=== PATIENT | female | born 1995 | race Caucasian/White ===

== ENCOUNTER 2023-08-06 11:47 | Day surgery (SDC) | payer OTHER, SELFPAY ==
[2023-08-04 14:54] VITALS: BMI 23.1
--- NOTE | 2023-08-06 | PATH_ITS ---
[facility] Accession Number: [id number] No. of containers..01 Tissue . 01 Material submitted: . endometrium - ENDOMETRIAL CURETTINGS . 01 Diagnosis: Endometrium, Curettings: Polypoid fragments of benign secretory phase endometrium. Negative for significant cytologic atypia, hyperplasia and malignancy. MRV 08/12/2023 1640 Local . 01 Electronically signed: . Agata Rucker MD, Pathologist NPI- [id number] . 01 Gross description: . ENDOMETRIAL CURETTINGS: Received in formalin are minute fragments of mucoid and hemorrhagic material measuring 1.3 x 1.3 x 0.4 cm in aggregate. Submitted in toto in 1 cassette. /ROGER 08/07/2023 1907 Local . 01 Pathologist provided ICD-10: N92.0, D25.9 . 01 CPT . 655632 Specimen Comment: A courtesy copy of this report has been sent to [phone] Performed at: 01 [facility] [address] [place] [address], [place], [place] [id number] MD Luis Fernando Posey MD Phone: [phone]
[2023-08-06 12:07] VITALS: BP 97/63; PULSE 60; RESP 16; TEMP 36.3; O2SAT 100; BMI 22.5
[2023-08-06] MEDS: LACTATED RINGERS 1,000 ML 150 ML IV (12:32)
--- NOTE | 2023-08-06 12:34 | SUR.PREOP ---
Patient refused scopalamine patch stating she has never had nausea or vomiting after surgery
--- NOTE | 2023-08-06 13:45 | P.HPOB_ITS ---
History of Present Illness History of Present Illness Reason for admission: vaginal bleeding (Heavy) Narrative: Patti Ron is a 28 year old female G0 who presents for a D&C hysteroscopy with resection of endometrial mass. This is being done due to menorrhagia and endometrial mass seen on ultrasound. [facility] Medical History (Updated 06/10/23 @ 19:40 by Caitlyn Charltno) Anxiety (~2018) Migraines (~2013) Headache (~2013) ADHD (~2003) Ovarian cancer Breast cancer Surgical History (Updated 06/10/23 @ 19:40 by Caitlyn Charlton) Anesthesia History of hip surgery Family History (Updated 06/10/23 @ 19:43 by Caitlyn Charlton) Father Cancer Mother Breast cancer Grandmother Breast cancer Grandfather Cancer Social History household members: spouse Smoking Status: Never smoker alcohol intake: current Meds Home Medications and Allergies Home Medications Medication Instructions Recorded Confirmed Type dextroamphetamine sulfate 10 mg 10 mg PO DAILY 08/06/23 08/06/23 History tablet Allergies Allergy/AdvReac Type Severity Reaction Status Date / Time No Known Drug Allergies Allergy Unverified 05/29/23 15:16 Exam Vital Signs (past 8 hours): - 08/06/23 12:07 Temperature 97.3 F L Pulse Rate 60 Respiratory Rate 16 Blood Pressure 97/63 Pulse Oximetry 100 Oxygen Delivery Method Room Air Oxygen Delivery Method Room Air Narrative Exam Narrative: HEENT: No thyromegaly, no anterior cervical or supraclavicular lymphadenopathy. Lungs:Clear to auscultation bilaterally, no wheezes. Cardiovascular: Regular rate and rhythm, no murmurs, rubs, or gallops. Abdomen: No scars. No hepatosplenomegaly. No masses palpable. External genitalia: Normal Vagina: Normal Cervix: Normal Bimanual exam: 7 Week size anterior uterus. Mobile. Extremities: No edema Assessment & Plan Assessment & Plan narrative: Assessment: 28-year-old 0 with menorrhagia and an endometrial mass seen on ultrasound Plan: D&C hysteroscopy with resection of mass The risks, benefits, and alternatives to the procedure were explained to the patient. The risks including bleeding, infection, and uterine perforation. She understands these risks and agrees to proceed. A full par Q was held and consent form was signed.
--- NOTE | 2023-08-06 13:46 | PM.PREOP ---
Pre-operative Note Interval Note History & Physical reviewed/Exam performed by Physician: Yes Changes to H&P: No H&P completed within 30 days and has changed as indicated here:: 08/06/23
--- NOTE | 2023-08-06 14:41 | SUR.OPER ---
Lithotomy on padded OR bed, head on pillow, arms secured on padded arm boards at <90 degrees abduction. Legs secured in padded yellow fins stirrups.
[2023-08-06] MEDS: ACETAMINOPHEN IV 1,000 MG/100 ML VIAL 400 MG IV (14:44)
[2023-08-06 15:00] VITALS: BP 113/67; PULSE 50; RESP 13; TEMP 36.6; O2SAT 100
--- NOTE | 2023-08-06 15:02 | P.OP_ITS ---
Operative Date/Time/Diagnoses Date of procedure: 08/06/23 Time of procedure: 15:02 Pre-op diagnosis: Menorrhagia Endometrial mass Post-op diagnosis: same Procedure & Clinicians Procedure: Procedures Operation Date: 08/06/23 13:00 Actual Procedure Side Surgeon p Hysteroscopy D&C Not Applicable Leda Guillaume MD Indications: Patient is a 28-year-old 0 with menorrhagia and an endometrial mass seen on ultrasound Surgeon: Leda Guillaume Anesthesia Type: General (LMA) Operative Notes Findings: 7 week size anteverted uterus Both fallopian tube ostia observed Very thickened lining from the mid uterus to the fundus on the anterior wall Large amount of endometrial curetting No polyp or fibroid observed Closure Type: not applicable Specimen(s): endometrial curettings Estimated blood loss (mL): 15 Blood products transfused: none Procedure in detail: After informed consent was obtained, the patient was taken to the operating room where she was placed in the dorsal supine position. After adequate LMA general anesthesia was achieved, she was placed in the dorsal lithotomy position, and prepped and draped in the usual sterile fashion. A time-out was performed. A bivalve speculum was placed into the vagina and the anterior lip of the cervix was grasped with a single-tooth tenaculum. The cervical os was sequentially dilated to the # 9 Hegar dilator. The hysteroscope pass easily into the endometrial cavity. Both fallopian tube ostia were observed. There were no polyps or fibroids observed. There was a very thickened glandular endometrium extending from the mid uterus to the fundus on the anterior wall. The hys teroscope was removed from the uterus. Sharp curettage was performed yielding a large amount of endometrial curettings. The instruments were removed from the uterus. The single-tooth tenaculum was removed from the anterior lip of the cervix. The bivalve speculum was removed from the vagina. Sponge, lap, and instrument counts were correct x2. The patient tolerated the procedure well, and was taken to PACU in stable condition. Complications: none Post-operative Condition: stable Disposition: PACU Plan for aftercare: Home after recovery
[2023-08-06 15:07] VITALS: BP 107/58; PULSE 95; RESP 11; TEMP 36.6; O2SAT 100
[2023-08-06 15:11] VITALS: BP 111/64; PULSE 74; RESP 12; TEMP 36.6; O2SAT 100
[2023-08-06 15:16] VITALS: BP 113/63; PULSE 69; RESP 18; TEMP 36.4; O2SAT 99
[2023-08-06 15:23] VITALS: BP 100/66; PULSE 60; RESP 16; TEMP 36.8; O2SAT 98
== END 2023-08-06 15:28 | disposition home or self-care (01) ==
PROVIDERS: PCP Nurse Practitioner; Referring Provider Obstetrics & Gynecology; Visit Provider Obstetrics & Gynecology
PROC: 0UDB8ZZ Extraction of Endometrium, Via Natural or Artificial Opening Endoscopic (ICD-10-PCS; CPT 58558; principal; 2023-08-06 13:00)
DX: N92.0 Excessive and frequent menstruation with regular cycle (principal); R93.89 Abnormal findings on diagnostic imaging of other specified body structures; N84.0 Polyp of corpus uteri
CPT/HCPCS: 58558; J0131; J1100; J1885; J2405; J2704; J3010

== ENCOUNTER 2024-02-08 10:34 | Emergency (ER) | payer OTHER, SELFPAY ==
[2024-02-08 10:38] VITALS: BP 122/68; PULSE 55; RESP 20; TEMP 36.6; O2SAT 100; BMI 22.8
--- NOTE | 2024-02-08 11:23 | ED.GENADULT ---
HPI - General Adult General Chief complaint: Urogenital-Female Stated complaint: severe abd pain t-6, diff urinating Time Seen by Provider: 02/08/24 11:23 Source: patient Mode of arrival: Ambulatory History of Present Illness HPI narrative: 28-year-old G0 with history of dysmenorrhea with hysteroscopy and resection of a uterine fibroid as well as D and C done on August 30 as fairly significant history comes in complaining of abdominal pain has been present for 5 days and getting worse. She states it is in her pelvis and localizing into the right lower quadrant. It started in her low back with no radicular pain last week. 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 She did attributed it to some heavy yd work she had done but symptoms continued. She has some mild dysuria but no overt flank pain that she identifies. She has not describing significant vaginal discharge and no vaginal bleeding. No new sexual partners. She has not having fevers, constipation, nausea, vomiting, diarrhea, chest pain, palpitations Related Data Home Medications Medication Instructions Recorded Confirmed dextroamphetamine sulfate 10 mg 10 mg PO DAILY 08/06/23 08/06/23 tablet Previous Rx's Medication Instructions Recorded oxycodone 5 mg tablet 5 mg PO Q6H PRN pain #7 tabs 08/06/23 oxycodone 5 mg tablet 5 mg PO Q6H PRN pain #7 tabs 08/07/23 Allergies Allergy/AdvReac Type Severity Reaction Status Date / Time No Known Drug Allergies Allergy Unverified 05/29/23 15:16 Review of Systems Review of Systems Narrative: Pertinent positive and negative findings as per HPI Patient History Medical History Anxiety (~2019) Migraines (~2014) Headache (~2014) ADHD (~2004) Surgical History Anesthesia History of hip surgery Family History Father Cancer Mother Breast cancer Grandmother Breast cancer Grandfather Cancer Social History household members: spouse Smoking Status: Never smoker alcohol intake: current Smoking Status: Never smoker alcohol intake frequency: a few times a week Substance Use Type: does not use Exam Initial Vital Signs Initial Vital Signs: Vital Signs Temperature 98 F 02/08/24 10:38 Pulse Rate 55 L 02/08/24 10:38 Respiratory Rate 20 02/08/24 10:38 Blood Pressure 122/68 02/08/24 10:38 Pulse Oximetry 100 02/08/24 10:38 Oxygen Delivery Method Room Air 02/08/24 10:38 General: Healthy appearing, in no acute distress. Able to give a complete and coherent history. Well-nourished well-developed HEENT: Moist mucous membranes, normal sclera with reactive pupils, Respiratory: Lungs are clear to auscultation, no wheezing no rales no rhonchi. Full and symmetrical air movement Cardiac: Regular rate and rhythm no murmurs no bruits Abdomen: Soft, mild tenderness in the lower abdomen with increased tenderness in the right lower quadrant. No flank pain. Spine: She has no tenderness along the sacrum or lumbar spine. No skin discoloration, no paraspinous muscle spasm Skin: Warm and dry, no rashes Neurologic: Grossly neurologically intact with no obvious asymmetries or abnormalities Extremities: No trauma, well perfused Psych: Cooperative, appropriate insight and affect Course Orders Ordered: ED Orders 02/08/24 10:56 Test Urine Stat Urinalysis and Microscopic Stat 02/08/24 11:38 CT abdomen pelvis w con Stat 02/08/24 11:50 Complete Blood Count AUTO DIFF Stat Comprehensive Metabolic Panel Stat Lipase Stat Vital Signs Vital signs: Vital Signs - 8 hr 02/08/24 10:38 02/08/24 11:49 02/08/24 11:50 Temperature 98 F Pulse Rate 55 L 54 L 51 L Respiratory Rate 20 Blood Pressure 122/68 Pulse Oximetry 100 100 100 Oxygen Delivery Method Room Air Room Air 02/08/24 11:50 Temperature Pulse Rate Respiratory Rate Blood Pressure 110/58 L Pulse Oximetry Oxygen Delivery Method Medical Decision Making Lab Data 02/08/24 11:50 02/08/24 11:50 Labs: Lab Results 02/08/24 02/08/24 Range/Units 10:56 11:50 WBC 10.4 (4.5-11.0) X10^3/uL RBC 4.08 (4.0-5.2) X10^6/uL Hgb 12.8 (12.0-16.0) g/dL Hct 38.3 (36-46) % MCV 93.8 (80-100) fL MCH 31.3 (26-34) PG MCHC 33.3 (30-36) % RDW 13.4 (11.6-14.8) % Plt Count 349 (150-400) X10^3/uL Neut % (Auto) 80.1 H (50-75) % Lymph % (Auto) 11.7 L (25-40) % [place] % (Auto) 6.7 (3-14) % Eos % (Auto) 0.7 L (2-4) % Baso % (Auto) 0.8 (0-2) % Neut # (Auto) 8300 H (7950-2995) /uL Lymph # (Auto) 1200 (1268-6379) /uL [place] # (Auto) 700 (0-900) /uL Eos # (Auto) 100 (0-450) /uL Baso # (Auto) 100 (0-100) /uL Sodium 138 (137-145) mmol/L Potassium 4.5 (3.4-5.1) mmol/L Chloride 105 (98-107) mmol/L Carbon Dioxide 32 (22-32) mmol/L BUN 12 (7-17) mg/dL Creatinine 0.70 (0.52-1.04) mg/dL Estimated GFR > 60 (>60) mL/min BUN/Creatinine Ratio 17.1 (6-22) Glucose 82 (70-100) mg/dL Calcium 9.1 (8.4-10.2) mg/dL Total Bilirubin 0.4 (0.2-1.3) mg/dL AST 26 (14-36) IU/L ALT 20 (<35) IU/L Alkaline Phosphatase 50 (38-126) U/L Total Protein 7.5 (6.3-8.2) g/dL Albumin 4.3 (3.5-5.0) g/dL Globulin 3.2 (1.7-4.1) g/dL Albumin/Globulin Ratio 1.3 (1.0-2.8) Lipase 99 (23-300) U/L Urine Color Yellow Urine Appearance Clear Urine pH 6.0 (4.5-8.0) Ur Specific [place] <=1.005 (1.000-1.035) Urine Protein Negative (Negative) Urine Glucose (UA) Negative (Negative) g/dL Urine Ketones Negative (NEGATIVE) Urine Occult Blood Negative (Negative) Urine Nitrate Negative (Negative) Urine Bilirubin Negative (NEGATIVE) Urine Urobilinogen 0.2 (0.2) E.U./dL Ur Leukocyte Esterase Negative (NEGATIVE) Urine RBC None seen (0-5/HPF) Urine WBC None seen (0-5/HPF) Ur Squamous Epith Cells None seen (0-5/HPF) Urine Bacteria None seen (None) Ur Culture Indicated? Cult not indicated Vol Urine Centrifuged 10ml (spun) Urine Test Negative (Negative) Urine Dip Bedside Urine Glucose Negative Bedside Urine Bilirubin - Negative Bedside Urine Ketone - Negative Urine Specific [place] 1.000 Bedside Urine Occult Blood - Negative Bedside Urine pH 6.0 Bedside Urine Protein - Negative Bedside Urine Urobilinogen - Negative Bedside Urine Nitrite - Negative Bedside Urine Leukocytes - Negative Esterase Point of care testing: Urine Dip Bedside Urine Glucose Negative Bedside Urine Bilirubin - Negative Bedside Urine Ketone - Negative Urine Specific [place] 1.000 Bedside Urine Occult Blood - Negative Bedside Urine pH 6.0 Bedside Urine Protein - Negative Bedside Urine Urobilinogen - Negative Bedside Urine Nitrite - Negative Bedside Urine Leukocytes - Negative Esterase Imaging Data CT scan - abdomen/pelvis: Radiologist's Impression: PROCEDURE: CT ABDOMEN PELVIS W CON INDICATIONS: Lower abdominal pain x6 days TECHNIQUE: After the administration of intravenous contrast, axial sections acquired from the lung bases to the pubic symphysis. Coronal and sagittal reformats were performed. For radiation dose reduction, the following was used: automated exposure control, adjustment of mA and/or kV according to patient size. COMPARISON: US, US PELVIC COMPLETE, 05/29/2023, 15:40. FINDINGS: Image quality: Diagnostic. Lower Chest: No significant findings. ABDOMEN: Liver: No solid mass. Liver measures 18.2 cm. Gallbladder: No radiopaque gallstones or wall thickening. Biliary ducts: No biliary dilation. Pancreas: No ductal dilation. Spleen: Size is within normal limits. Adrenal Glands: No adrenal nodules. Kidneys and Ureters: No hydronephrosis. No solid mass. No complex renal cystic lesion which requires follow up. Stomach and Bowel: Normal colonic caliber, without significant wall thickening. Moderate colonic stool. Peritoneum: No abnormal intraperitoneal fluid. No free air. Ventral Wall: No significant ventral hernia. Abdominal Nodes: No retroperitoneal or mesenteric adenopathy by size criteria. Vessels: Aorta and inferior vena cava are normal in size. PELVIS: Pelvic Organs: 2 cm low-attenuation focus within the region of the right adnexa. Bladder: No bladder wall thickening, accounting for underdistention. Pelvic Nodes: No enlarged lymph nodes. Miscellaneous: No inguinal hernias are seen. Bones: No aggressive osseous abnormality. IMPRESSION: Moderate colonic stool without obstruction. 2 cm focus within the right adnexal region likely representing cyst. Dictated by: Gayle Williamson M.D. 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 With the dull and persistent nature of the pain ovarian torsion is felt to be less likely. With the recent biology lecturer procedures patient does not believe she is Exam documented above, pertinent findings include: Moderate lower abdominal pain without rebound or guarding remainder of exam is benign Lab Test results independently reviewed as above. Pertinent findings: CBC is unremarkable Chemistries are reassuring. No acute finding Lipase does not suggest pancreatitis Urinalysis is unremarkable, no evidence of urinary tract infection Imaging studies independently reviewed: CT scan notice a 2 mm cyst in the right adnexa, likely physiologic. She does have a moderate amount of stool which likely explains her pain. Discussion: 28-year-old woman with the increasing abdominal pain. Labs reassuring, CT scan suggests no significant surgical or pathologic abnormalities but she does have quite a bit of stool. Reviewed stool findings and suggestions for magnesium citrate today followed by MiraLax daily for the next couple of days and see how her body responds to this. We talked about diet and exercise which she actually does fairly appropriately and she is somewhat perplexed about how she ended up getting so constipated that she was having pain severe enough to warrant an emergency department visit. At this point reassurance is given and she is safe for discharge home Discharge Plan Departure Patient Disposition: Home Clinical Impression: Abdominal pain Qualifiers: Abdominal location: generalized Qualified Code(s): R10.84 - Generalized abdominal pain Instructions: DI for Abdominal Pain-Adult, DI for Constipation Activity Restrictions/Additional Instructions: Thank you for coming in today Your blood work was reassuring and did not show any significant infection. There was no evidence of urinary tract infection, kidney stones, pyelonephritis. The CT scan did not show any acute surgical findings such as appendicitis, masses or tumors, diverticulitis. It also did not suggest that there is quite a bit of stool throughout the colon particularly on your right side. This may be contributing to your pain. I am going to request that you drink a bottle of magnesium citrate, this is [id number] usually on the bottom shelf in the grocery store section that includes all of the constipation and diarrhea medications. I would also recommend buying a small bottle of MiraLax and doing 1 capful of the powder and a large glass of water, coffee, tea daily for the next few days. See how your body response and see how you are feeling. Diet is always the best option for controlling constipation, but if you do need additional help the magnesium citrate and MiraLax can provide that. If you find that you are getting worse or develop any new symptoms, please feel free to return to the emergency department for further evaluation. Prescriptions: No Action oxycodone 5 mg tablet 5 mg PO Q6H PRN (Reason: pain) Qty: 7 0RF dextroamphetamine sulfate 10 mg tablet 10 mg PO DAILY oxycodone 5 mg tablet 5 mg PO Q6H PRN (Reason: pain) Qty: 7 0RF Referrals: Aisha Rodrigues ARNP [Primary Care Provider] - Stand Alone Forms: Patient Portal/API
--- NOTE | 2024-02-08 11:38 | DI.CT.S_ITS ---
PROCEDURE: CT ABDOMEN PELVIS W CON INDICATIONS: Lower abdominal pain x6 days TECHNIQUE: After the administration of intravenous contrast, axial sections acquired from the lung bases to the pubic symphysis. Coronal and sagittal reformats were performed. For radiation dose reduction, the following was used: automated exposure control, adjustment of mA and/or kV according to patient size. COMPARISON: US, US PELVIC COMPLETE, 05/29/2023, 15:40. FINDINGS: Image quality: Diagnostic. Lower Chest: No significant findings. ABDOMEN: Liver: No solid mass. Liver measures 18.2 cm. Gallbladder: No radiopaque gallstones or wall thickening. Biliary ducts: No biliary dilation. Pancreas: No ductal dilation. Spleen: Size is within normal limits. Adrenal Glands: No adrenal nodules. Kidneys and Ureters: No hydronephrosis. No solid mass. No complex renal cystic lesion which requires follow up. Stomach and Bowel: Normal colonic caliber, without significant wall thickening. Moderate colonic stool. Peritoneum: No abnormal intraperitoneal fluid. No free air. Ventral Wall: No significant ventral hernia. Abdominal Nodes: No retroperitoneal or mesenteric adenopathy by size criteria. Vessels: Aorta and inferior vena cava are normal in size. PELVIS: Pelvic Organs: 2 cm low-attenuation focus within the region of the right adnexa. Bladder: No bladder wall thickening, accounting for underdistention. Pelvic Nodes: No enlarged lymph nodes. Miscellaneous: No inguinal hernias are seen. Bones: No aggressive osseous abnormality. IMPRESSION: Moderate colonic stool without obstruction. 2 cm focus within the right adnexal region likely representing cyst. Dictated by: Gayle Williamson M.D. on 02/08/2024 at 13:20 Approved by: Gayle Williamson M.D. on 02/08/2024 at 13:23
[2024-02-08 11:49] VITALS: PULSE 54; O2SAT 100
[2024-02-08 11:49] LABS: Appearance Urine UA CLEAR; Bilirubin Urine UA NEGATIVE (NEGATIVE); Color Urine UA YELLOW; Glucose Urine UA NEGATIVE (Negative); Ketones Urine UA NEGATIVE (NEGATIVE); Leukocyte Esterase Urine UA NEGATIVE (NEGATIVE); Nitrite Urine UA NEGATIVE (Negative); Occult Blood Urine UA NEGATIVE (Negative); Protein Urine UA NEGATIVE (Negative); Specific Gravity Urine UA <=1.005 (1.000-1.035); Urobilinogen Urine UA 0.2 E.U./dL (0.2)
[2024-02-08 11:50] VITALS: BP 110/58; PULSE 51; O2SAT 100
[2024-02-08 11:56] LABS: Bacteria Urine None Seen; Culture Indicated Urine Cult Not Indicated; RBC Urine None Seen (0-5/HPF); Squamous Epithelial Cell Urine None Seen (0-5/HPF); Urine Volume 10mL (spun); WBC Urine None Seen (0-5/HPF)
[2024-02-08 12:02] LABS: Add Manual Diff / Slide Review NO; Basophils Absolute Auto 100 /uL (0-100); Basophils Percent Auto 0.8 % (0-2); Eosinophils Absolute Auto 100 /uL (0-450); Eosinophils Percent Auto 0.7 % (2-4); Hematocrit 38.3 % (36-46); Hemoglobin 12.8 g/dL (12.0-16.0); Lymphocytes Absolute Auto 1200 /uL (1100-4500); Lymphocytes Percent Auto 11.7 % (25-40); Mean Corpuscular HGB Conc 33.3 % (30-36); Mean Corpuscular Hemoglobin 31.3 PG (26-34); Mean Corpuscular Volume 93.8 fL (80-100); Monocytes Absolute Auto 700 /uL (0-900); Monocytes Percent Auto 6.7 % (3-14); Neutrophils Absolute Auto 8300 /uL (1500-7000); Neutrophils Percent Auto 80.1 % (50-75); Platelet Count 349 X10^3/uL (150-400); Red Blood Cell Count 4.08 X10^6/uL (4.0-5.2); Red Cell Distribution Width 13.4 % (11.6-14.8); White Blood Cell Count 10.4 X10^3/uL (4.5-11.0)
[2024-02-08 12:05] LABS: Pregnancy Test Urine Negative (Negative)
[2024-02-08 12:14] LABS: Alanine Aminotransferase 20 IU/L (<35); Albumin 4.3 g/dL (3.5-5.0); Albumin Globulin Ratio 1.3 (1.0-2.8); Alkaline Phosphatase 50 U/L (38-126); Aspartate Aminotransferase 26 IU/L (14-36); BUN Creatinine Ratio 17.1 (6-22); Bilirubin Total 0.4 mg/dL (0.2-1.3); Blood Urea Nitrogen 12 mg/dL (7-17); Calcium 9.1 mg/dL (8.4-10.2); Carbon Dioxide 32 mmol/L (22-32); Chloride 105 mmol/L (98-107); Estimated Glomerular Filt Rate > 60 mL/min (>60); Globulin 3.2 g/dL (1.7-4.1); Glucose 82 mg/dL (70-100); HEMOLYSIS < 15 (0-50); Lipase 99 U/L (23-300); Potassium 4.5 mmol/L (3.4-5.1); Sodium 138 mmol/L (137-145); Total Protein 7.5 g/dL (6.3-8.2)
[2024-02-08 14:56] VITALS: BP 112/59; PULSE 59; RESP 16; O2SAT 100
== END 2024-02-08 14:59 | disposition home or self-care (01) ==
PROVIDERS: Emergency Provider Emergency Medicine; PCP Nurse Practitioner
DX: R10.84 Generalized abdominal pain (principal); R30.0 Dysuria
CPT/HCPCS: 36415; 74177; 80053; 81001; 81003; 81025; 83690; 85025; 99284; Q9967